=== PATIENT | female | born 1945 | race Caucasian/White ===

== ENCOUNTER 2019-01-16 20:58 | Emergency (ER) | payer OTHER, MEDICAID ==
[~2019-01-16] VITALS: Ht 160 cm; Wt 90.9 kg
[~2019-01-16 20:58] MED LIST: CALC-143 PO; ESOM40CA51 PO; GABA300C16 PO; GEMF600T8 PO; GLUC-105 PO; METF500T24 PO; MULTI PO; SERT25TA83 PO; VITA1CAP PO
[2019-01-16 21:13] VITALS: Ht 160 cm; Wt 90.9 kg
[2019-01-16] MEDS ORDERED: SOD CHLORIDE 0.9% 500 ML IV STA (22:32)
[2019-01-16] MEDS ORDERED: morphine 4 MG/ML VIAL IV STA (22:32)
[2019-01-16] MEDS ORDERED: ONDANSETRON 4 MG INJ IV STA (22:32)
[2019-01-17] MEDS ORDERED: SOD CHLORIDE 0.9% 1,000 ML IV SCH (01:08)
[2019-01-17] MEDS ORDERED: morphine 2 MG INJ IV PRN (01:30)
[2019-01-17] MEDS ORDERED: DOCUSATE SODIUM 100 MG CAP PO PRN (01:30)
[2019-01-17] MEDS ORDERED: NACL 0.9% 3 ML SYG IV SCH (01:30)
[2019-01-17] MEDS ORDERED: ONDANSETRON 4 MG INJ IV PRN (01:30)
[2019-01-17] MEDS ORDERED: ACETAMINOPHEN 325 MG TAB PO PRN (01:30)
[2019-01-17] MEDS ORDERED: METOCLOPRAMIDE 10 MG INJ IV PRN (01:30)
[2019-01-17] MEDS ORDERED: BISACODYL (EC) 5 MG TAB PO PRN (01:30)
[2019-01-17 01:41] VITALS: BP 134/68; PULSE 76; RESP 20
--- NOTE | 2019-01-17 01:54 | ERD ---
ER Documentation Chief Complaint Chief Complaint abd pain and vomiting since noon today. hx bowel obstruction HPI This is a 73-year-old female with vomiting and vomiting since noon today. Patient has history of bowel obstruction previously as well. Pain is mild to moderate intensity no exacerbating alleviating factors. No fevers no chills. Nonbloody vomiting. No change in bowel habits otherwise. ROS All systems reviewed and are negative except as per history of present illness. Medications Home Meds Reported Medications Metformin Hcl* (Metformin Hcl*) 500 Mg Tablet, 500 MG PO WITH BREAKFAST, #30 TAB 06/07/18 Calcium Citrate/Vitamin D (Citracal-Vitamin D 200 MG-250) 1 Each Tablet, 1 EACH PO BID, TAB 06/06/18 Glucosa Dey 2KCL/Chondroitin Dey (GLUCOSAMINE CHONDROITIN CAPLET) 1 Each Tablet, 1 EACH PO, TAB 06/06/18 Vitamin B Complex (Vitamin B Complex) 1 Each Capsule, 1 EACH PO, CAP 06/06/18 Multivitamins* (Theragran*) 1 Tab Tab, 1 TAB PO DAILY, TAB 06/06/18 Esomeprazole Magnesium (Esomeprazole Magnesium) 40 Mg Capsule.dr, 40 MG PO DAILY, #60 11/07/15 Sertraline Hcl* (Sertraline Hcl*) 25 Mg Tablet, 25 MG PO DAILY, #90 11/07/15 Gemfibrozil* (Gemfibrozil*) 600 Mg Tablet, 600 MG PO BID, #180 11/07/15 Gabapentin* (Gabapentin*) 300 Mg Capsule, 300 MG PO BID, #180 TAKE 600MG BY MOUTH IN THE MORNING, 900mg IN THE EVENING 11/07/15 Allergies Allergies: Coded Allergies: atorvastatin (Verified Allergy, Unknown, GENERALISED EDEMATOUS, 01/16/19) PMhx/Soc History of Surgery: Yes (HYSTERECTOMY, BACK SX, GALL STONE REMOVAL,) Anesthesia Reaction: No Hx Neurological Disorder: No Hx Respiratory Disorders: No Hx Cardiac Disorders: No Hx Psychiatric Problems: Yes (STRESS,DEPRESSION) Hx Miscellaneous Medical Probl: Yes (OVARIAN CA) Hx Alcohol Use: No Hx Substance Use: No Hx Tobacco Use: No Smoking Status: Never smoker Physical Exam Vitals Vital Signs Date Temp Pulse Resp B/P (MAP) Pulse Ox O2 O2 Flow FiO2 Time Delivery Rate 01/17/19 99.3 76 20 134/68 97 Room Air 01:41 (90) 01/16/19 99.3 99 20 162/81 97 Room Air 22:10 (108) 01/16/19 99.3 79 20 178/82 96 21:13 (114) Physical Exam Const: No acute distress Head: Atraumatic Eyes: Normal Conjunctiva ENT: Normal External Ears, Nose and Mouth. Neck: Full range of motion. No meningismus. Resp: Clear to auscultation bilaterally Cardio: Regular rate and rhythm, no murmurs Abd: Soft, non tender, non distended. Normal bowel sounds Skin: No petechiae or rashes Back: No midline or flank tenderness Ext: No cyanosis, or edema Neur: Awake and alert Psych: Normal Mood and Affect Result Diagram: 01/16/19224201/16/192242 Results 24 hrs Laboratory Tests Test 01/16/19 22:43 White Blood Count 11.3 10^3/ul Red Blood Count 4.34 10^6/ul Hemoglobin 12.8 g/dl Hematocrit 38.0 % Mean Corpuscular Volume 87.6 fl Mean Corpuscular Hemoglobin 29.5 pg Mean Corpuscular Hemoglobin Concent 33.7 g/dl Red Cell Distribution Width 12.5 % Platelet Count 317 10^3/UL Mean Platelet Volume 9.8 fl Immature Granulocytes % 0.600 % Neutrophils % 85.8 % Lymphocytes % 9.8 % Monocytes % 3.1 % Eosinophils % 0.3 % Basophils % 0.4 % Nucleated Red Blood Cells % 0.0 /100WBC Immature Granulocytes # 0.070 10^3/ul Neutrophils # 9.7 10^3/ul Lymphocytes # 1.1 10^3/ul Monocytes # 0.4 10^3/ul Eosinophils # 0.0 10^3/ul Basophils # 0.0 10^3/ul Nucleated Red Blood Cells # 0.0 10^3/ul Sodium Level 142 mmol/L Potassium Level 4.4 mmol/L Chloride Level 104 mmol/L Carbon Dioxide Level 25 mmol/L Anion Gap 13 Blood Urea Nitrogen 15 mg/dl Creatinine 0.79 mg/dl Est Glomerular Filtrat Rate mL/min mL/min Glucose Level 177 mg/dl Calcium Level 9.5 mg/dl Total Bilirubin 0.3 mg/dl Direct Bilirubin 0.00 mg/dl Indirect Bilirubin 0.3 mg/dl Aspartate Amino Transf (AST/SGOT) 55 IU/L Alanine Aminotransferase (ALT/SGPT) 51 IU/L Alkaline Phosphatase 145 IU/L Total Protein 8.0 g/dl Albumin 4.4 g/dl Globulin 3.60 g/dl Albumin/Globulin Ratio 1.22 Lipase 123 U/L Current Medications Medications Dose Sig/Adam Start Time Status Last (Trade) Ordered Route PRN Stop Time Admin Dose Reason Admin Sodium 500 ml @ Q1H STAT 01/16/19 DC 01/16/19 Chloride 500 mls/hr IV 22:32 22:55 01/16/19 23:31 Morphine 4 mg ONCE STAT 01/16/19 DC 01/16/19 Sulfate IV 22:32 22:55 (morphine) 01/16/19 22:33 Ondansetron 4 mg ONCE STAT 01/16/19 DC 01/16/19 HCl (Zofran IV 22:32 22:55 Inj) 01/16/19 22:33 Sodium 1,000 ml @ [id number] IV 01/17/19 Chloride 80 mls/hr 01:08 IV Flush 3 ml PER 01/17/19 (NS 3 ml) PROTOCOL IV 01:30 Ondansetron 4 mg Q6H PRN 01/17/19 HCl (Zofran IV 01:30 Inj) NAUSEA/VOMITI NG 10 mg Q6H PRN 01/17/19 Metoclopramid IV 01:30 e HCl NAUSEA/VOMITI (Reglan) NG 650 mg Q6H PRN 01/17/19 Acetaminophen PO .PAIN 1-3 01:30 (Tylenol OR TEMP Tab) Morphine 2 mg Q4H PRN 01/17/19 Sulfate IV .SEVERE 01:30 (morphine) PAIN 7-10 Docusate 100 mg Q12H PRN 01/17/19 Sodium PO 01:30 (Colace) .CONSTIPATION Bisacodyl 5 mg DAILY PRN 01/17/19 (Dulcolax) PO 01:30 .CONSTIPATION Procedures/MDM Medical decision makin-year-old female with small bowel obstruction. Patient will be admitted to the hospitalist Dr. Berrios. Dr. Workman will consu lt for surgery. Departure Diagnosis: Primary Impression: Abdominal pain Abdominal location: generalized Qualified Codes: R10.84 - Generalized abdominal pain Additional Impression: Small bowel obstruction Condition: Serious MINNIE SOW Jan 17, 2019 01:54
[2019-01-17] MEDS ORDERED: MELO15TA30 PO (21:33)
[2019-01-17] MEDS ORDERED: ACET-141 PO (21:33)
== END 2019-01-17 03:00 | disposition left against medical advice (07) ==
LOC: E/R 20:58 → UNDOADMIN 01-17 01:04 → PP2 01-17 01:04 → E/R 01-17 03:00
DX: K56.609 Unspecified intestinal obstruction, unspecified as to partial versus complete obstruction (principal)
CPT/HCPCS: 36415; 71045; 74176; 80053; 83690; 85025; 96374; 96375; 99285; J2270; J2405; J7030; J7040

== ENCOUNTER 2019-01-17 17:32 | Inpatient (IN) | payer OTHER, MEDICAID ==
[~2019-01-17] VITALS: Ht 154.9 cm; Wt 89.4 kg
[2019-01-17] MEDS ORDERED: ACETAMINOPHEN 325 MG TAB PO PRN (20:30)
[2019-01-17] MEDS ORDERED: ONDANSETRON 4 MG INJ IV PRN ×2 (20:30→21:00)
[2019-01-17] MEDS ORDERED: LIDOCAINE 2% VISC 15 ML CUP PO ONE (20:30)
--- NOTE | 2019-01-17 20:53 | ERD ---
ER Documentation Chief Complaint Chief Complaint SEEN HERE YESTERDAY WAS TO BE ADMITTED, LEFT AMA - RETURN TODAY FOR ADMIT HPI 73-year-old female with prior history of cervical CA status post surgery and possible bowel obstruction who presents to the emergency room complaining of abdominal pain. She was seen here yesterday and had a CAT scan showing evidence of small bowel obstruction. Patient left AGAINST MEDICAL ADVICE. She still has abdominal bloating and pain but somewhat improved. She is having nausea but no vomiting. However, at this point the patient has not passed gas or stool in the past 24 hours. Pain is only mild at this time 2 out of 10 and cramping. ROS All systems reviewed and are negative except as per history of present illness. Medications Home Meds Reported Medications Metformin Hcl* (Metformin Hcl*) 500 Mg Tablet, 500 MG PO WITH BREAKFAST, #30 TAB 06/07/18 Calcium Citrate/Vitamin D (Citracal-Vitamin D 200 MG-250) 1 Each Tablet, 1 EACH PO BID, TAB 06/06/18 Glucosa Dey 2KCL/Chondroitin Dey (GLUCOSAMINE CHONDROITIN CAPLET) 1 Each Tablet, 1 EACH PO, TAB 06/06/18 Vitamin B Complex (Vitamin B Complex) 1 Each Capsule, 1 EACH PO, CAP 06/06/18 Multivitamins* (Theragran*) 1 Tab Tab, 1 TAB PO DAILY, TAB 06/06/18 Esomeprazole Magnesium (Esomeprazole Magnesium) 40 Mg Capsule.dr, 40 MG PO DAILY, #60 11/07/15 Sertraline Hcl* (Sertraline Hcl*) 25 Mg Tablet, 25 MG PO DAILY, #90 11/07/15 Gemfibrozil* (Gemfibrozil*) 600 Mg Tablet, 600 MG PO BID, #180 11/07/15 Gabapentin* (Gabapentin*) 300 Mg Capsule, 300 MG PO BID, #180 TAKE 600MG BY MOUTH IN THE MORNING, 900mg IN THE EVENING 11/07/15 Allergies Allergies: Coded Allergies: atorvastatin (Verified Allergy, Unknown, GENERALISED EDEMATOUS, 01/16/19) PMhx/Soc History of Surgery: Yes (HYSTERECTOMY, BACK SX, GALL STONE REMOVAL,) Anesthesia Reaction: No Hx Neurological Disorder: No Hx Respiratory Disorders: No Hx Cardiac Disorders: No Hx Psychiatric Problems: Yes (STRESS,DEPRESSION) Hx Miscellaneous Medical Probl: Yes (OVARIAN CA) Hx Alcohol Use: No Hx Substance Use: No Hx Tobacco Use: No Smoking Status: Never smoker FmHx Family History: No diabetes Physical Exam Vitals Vital Signs Date Temp Pulse Resp B/P (MAP) Pulse Ox O2 O2 Flow FiO2 Time Delivery Rate 01/17/19 64 18 97 Room Air 19:37 01/17/19 100.1 75 17 134/63 94 17:34 (86) Physical Exam General: Well developed, well nourished, no acute distress Head: Normocephalic, atraumatic. Eyes: Pupils equally reactive, EOM intact ENT: Moist mucous membranes Neck: Supple, no lymphadenopathy Respiratory: Lungs clear bilaterally, no distress Cardiovascular: RRR, no murmurs, rubs, or gallops Abdominal: Soft, protuberant, nontender : Deferred MSK: No edema, no unilateral swelling, 5/5 strength Neurologic: Alert and oriented, moving all extremities, normal speech, no focal weakness, no cerebellar signs Skin: No rash Psych: Normal mood Result Diagram: 01/17/19 1849 01/17/19 1849 Results 24 hrs Laboratory Tests Test 01/17/19 18:49 White Blood Count 10.5 10^3/ul Red Blood Count 3.93 10^6/ul Hemoglobin 11.6 g/dl Hematocrit 35.0 % Mean Corpuscular Volume 89.1 fl Mean Corpuscular Hemoglobin 29.5 pg Mean Corpuscular Hemoglobin Concent 33.1 g/dl Red Cell Distribution Width 13.2 % Platelet Count 308 10^3/UL Mean Platelet Volume 9.5 fl Immature Granulocytes % 0.600 % Neutrophils % 71.1 % Lymphocytes % 20.4 % Monocytes % 7.4 % Eosinophils % 0.2 % Basophils % 0.3 % Nucleated Red Blood Cells % 0.0 /100WBC Immature Granulocytes # 0.060 10^3/ul Neutrophils # 7.5 10^3/ul Lymphocytes # 2.1 10^3/ul Monocytes # 0.8 10^3/ul Eosinophils # 0.0 10^3/ul Basophils # 0.0 10^3/ul Nucleated Red Blood Cells # 0.0 10^3/ul Sodium Level 142 mmol/L Potassium Level 4.4 mmol/L Chloride Level 104 mmol/L Carbon Dioxide Level 27 mmol/L Anion Gap 11 Blood Urea Nitrogen 16 mg/dl Creatinine 0.84 mg/dl Est Glomerular Filtrat Rate mL/min mL/min Glucose Level 123 mg/dl Calcium Level 9.1 mg/dl Current Medications Medications Dose Sig/Adam Start Time Status Last (Trade) Ordered Route PRN Stop Time Admin Dose Reason Admin Ondansetron 4 mg BRIDGE ORDER 01/17/19 HCl (Zofran PRN IV 20:30 Inj) NAUSEA/VOMITI 01/18/19 20:29 NG 650 mg ER BRIDGE 01/17/19 Acetaminophen PRN PO 20:30 (Tylenol .MILD PAIN 01/18/19 20:29 Tab) 1-3 OR TEMP Lidocaine 15 ml ONCE ONCE 01/17/19 DC (Xylocaine PO 20:30 (Viscous)) 01/17/19 20:31 Sodium 1,000 ml @ [id number] IV 01/17/19 UNV Chloride 80 mls/hr 20:44 IV Flush 3 ml PER 01/17/19 UNV (NS 3 ml) PROTOCOL IV 21:00 Ondansetron 4 mg Q4 PRN IV 01/17/19 UNV HCl (Zofran NAUSEA/VOMITI 21:00 Inj) NG Morphine 2 mg Q4H PRN 01/17/19 UNV Sulfate IV .SEVERE 21:00 (morphine) PAIN 7-10 Docusate 100 mg Q12H PRN 01/17/19 UNV Sodium PO 21:00 (Colace) .CONSTIPATION Bisacodyl 5 mg DAILY PRN 01/17/19 UNV (Dulcolax) PO 21:00 .CONSTIPATION 40 mg DAILY@06 01/18/19 UNV Pantoprazole IV 06:00 (Protonix Iv) Procedures/MDM EKG, MONITORS, & DIAGNOSTIC IMAGING: CT a/p IMPRESSION: Persistent moderately distended small bowel loops pelvis without transition. Question small bowel obstruction versus ileus. No mass seen. Consider small-bow el follow-through for more definitive diagnosis. Cholecystectomy. Enlarged fatty liver. Vascular calcifications. Hysterectomy. LAB INTERPRETATION: I reviewed the laboratory testing and it shows [no evidence of acute process] MEDICAL DECISION MAKING: Patient presents for reevaluation of possible bowel obstruction. Her symptoms are dramatically improved with the patient has still not passed any stool or gas raising the concern for persistent obstruction. CT imaging can be repeated give n improved symptoms and if improved she can be discharged ER COURSE: * Repeat CAT scan unfortunately unchanged. The patient will benefit from admission for further evaluation and surgical consultation * NG tube placed * General surgeon button puncher notified CONSULTATION: Dr. Eduardo DISPOSITION PLAN: Accepting care team and consultations: I discussed the current laboratory data, diagnostic imaging and emergency care provided. Admitting team: Dr. Berrios Admitting team indication: Insurance directed Departure Diagnosis: Primary Impression: Abdominal pain Abdominal location: generalized Qualified Codes: R10.84 - Generalized abdominal pain Additional Impression: Small bowel obstruction Condition: Stable BRAYDEN WHITE MD Jan 17, 2019 20:53
[2019-01-17] MEDS ORDERED: morphine 2 MG INJ IV PRN (21:00)
[2019-01-17] MEDS ORDERED: NACL 0.9% 3 ML SYG IV SCH (21:00)
[2019-01-17] MEDS ORDERED: BISACODYL (EC) 5 MG TAB PO PRN (21:00)
[2019-01-17] MEDS ORDERED: DOCUSATE SODIUM 100 MG CAP PO PRN (21:00)
[2019-01-17 21:25] VITALS: Ht 154.9 cm; Wt 89.4 kg
--- NOTE | 2019-01-17 21:29 | HP ---
Date/Time of Note Date/Time of Note DATE: 01/17/19 TIME: 21:29 Assessment/Plan VTE Prophylaxis SCD applied (from Nsg): Yes Pharmacological prophylaxis: NA/contraindicated Pharm contraindication: low risk/ambulating Lines/Catheters IV Catheter Type (from Nrsg): Saline Lock Assessment/Plan Hospital Course This is a 72 year female being admitted to the [facility] floor for: 1. Small bowel obstruction:. Insert NG tube. Continue to suction. Continue with analgesics as needed. We'll provide with IV hydration. Consult Dr. smart Monitor electrolytes. 2. History of chronic major depression. SSRI medication once able to tolerate oral intake. 3. History of GERD: Protonix IV 4. History dyslipidemia. Lipid panel, gemfibrozil once able tolerate p.o. 5. DVT prophylaxis: SCDs, Protonix Further treatment strategy will be implemented for the clinical course Result Diagram: 01/17/19 1849 01/17/19 1849 Results 24hrs Laboratory Tests Test 01/17/19 18:49 White Blood Count 10.5 Red Blood Count 3.93 L Hemoglobin 11.6 L Hematocrit 35.0 L Mean Corpuscular Volume 89.1 Mean Corpuscular Hemoglobin 29.5 Mean Corpuscular Hemoglobin Concent 33.1 Red Cell Distribution Width 13.2 Platelet Count 308 Mean Platelet Volume 9.5 Immature Granulocytes % 0.600 H Neutrophils % 71.1 Lymphocytes % 20.4 Monocytes % 7.4 Eosinophils % 0.2 Basophils % 0.3 Nucleated Red Blood Cells % 0.0 Immature Granulocytes # 0.060 H Neutrophils # 7.5 Lymphocytes # 2.1 Monocytes # 0.8 Eosinophils # 0.0 Basophils # 0.0 Nucleated Red Blood Cells # 0.0 Sodium Level 142 Potassium Level 4.4 Chloride Level 104 Carbon Dioxide Level 27 Anion Gap 11 Blood Urea Nitrogen 16 Creatinine 0.84 Est Glomerular Filtrat Rate mL/min Glucose Level 123 # Calcium Level 9.1 HPI/ROS Admit Date/Time Admit Date/Time Hx of Present Illness Chief complaint: Abdominal pain times 2 days, vomiting This is a 73-year-old female with a past medical history of recurrent small bowel obstructions who presented to the emergency department with complaints of abdominal pain and vomiting. Patient presented earlier in the day as well and was found to have a small bowel obstruction however the patient left AMA as she needed to take care of her son. Patient reports that she continues to have abdominal pain and vomiting. While she had not had a bowel movement over the last 2 days she does report that she recently did have a bowel movement. Allergies: Atorvastatin Medications: MAR ROS const: As per HPI Eyes : No pain discharge or redness or change in visual acuity ENT: No pain, sore throat, congestion, congestion, dysphagia or discharge Respiratory: No shortness of breath, cough, sputum, wheezing, or pleuritic pain Cardiovascular: No chest pain, palpitation, PND, or edema GI : As per HPI Genitourinary: No dysuria, hematuria, flank pain , discharge or CVA tenderness Musculoskeletal: No joint pain, back pain, neck pain, restricted range of motion in neck or joints Skin: No rash, bruising or hives Neuro: No headache, dizziness, syncope, seizure, focal weakness Endocrine: No polyuria, polydipsia, temperature intolerance Psych: No hallucination, depression, anxiety or suicidal ideation PMH/Family/Social Past Medical History cervical cancer status post hysterectomy and radiation, history of recurrent small bowel obstruction, chronic GERD, major depression, peptic ulcer disease Medications Current Medications Ondansetron HCl (Zofran Inj) 4 mg BRIDGE ORDER PRN IV NAUSEA/VOMITING; Start 01/17/19 at 20:30; Stop 01/18/19 at 20:29 Acetaminophen (Tylenol Tab) 650 mg ER BRIDGE PRN PO .MILD PAIN 1-3 OR TEMP; Start 01/17/19 at 20:30; Stop 01/18/19 at 20:29 Sodium Chloride 1,000 ml @ 80 mls/hr [id number] IV ; Start 01/17/19 at 20:44 IV Flush (NS 3 ml) 3 ml PER PROTOCOL IV ; Start 01/17/19 at 21:00 Ondansetron HCl (Zofran Inj) 4 mg Q4 PRN IV NAUSEA/VOMITING; Start 01/17/19 at 21:00 Morphine Sulfate (morphine) 2 mg Q4H PRN IV .SEVERE PAIN 7-10; Start 01/17/19 at 21:00 Docusate Sodium (Colace) 100 mg Q12H PRN PO .CONSTIPATION; Start 01/17/19 at 21:00 Bisacodyl (Dulcolax) 5 mg DAILY PRN PO .CONSTIPATION; Start 01/17/19 at 21:00 Pantoprazole (Protonix Iv) 40 mg DAILY@06 IV ; Start 01/18/19 at 06:00 Iohexol ((Gastrografin therapeutic equivalent)) 900 ml GIVE PRIOR TO CT ONCE PO ; Start 01/18/19 at 08:00; Stop 01/18/19 at 08:01 Coded Allergies: atorvastatin (Verified Allergy, Unknown, GENERALISED EDEMATOUS, 01/16/19) Past Surgical History Cervical cancer status post hysterectomy Family History Significant Family History: no pertinent family hx Social History Alcohol Use: none Smoking Status: Never smoker Drug Use: none Exam/Review of Systems Vital Signs Vitals Vital Signs Date Temp Pulse Resp B/P (MAP) Pulse Ox O2 O2 Flow FiO2 Time Delivery Rate 01/17/19 76 18 143/55 100 Room Air 21:12 (84) 01/17/19 100.1 17:34 Exam Exam General: Patient is currently lying in bed he does not appear to be in acute distress, HEENT: Atraumatic, normocephalic. The pupils are equal, round and reactive. Extraocular motor are intact . NG tube connected to suction Neck: Supple with full range of motion. No rigidity or meningismus Chest: Nontender Lungs: Clear to auscultation bilaterally no crackles rales or wheezing Heart: Normal S1-S2, Regular rhythm and rate. No murmur, S3, or S4 Abdomen: Soft mild generalized tenderness palpation of the abdomen,, bowel sounds are present. No guarding no rebound tenderness , No masses or organomegaly. No costovertebral temporal angle mass Extremities: Normal to inspection, no edema no cyanosis Neurologic: Normal mental status, speech normal, cranial nerves II through XII are intact, motor and sensory are intact, Additional Comments PROCEDURE: CT abdomen and pelvis without contrast. CLINICAL INDICATION: Abdominal Pain TECHNIQUE: CT scan of the abdomen and pelvis without oral contrast was performed and is reconstructed at 2.5 mm contiguous axial intervals from the dome of the diaphragm to the inferior pubic rami.. The patient was scanned without intravenous contrast. Sagittal and coronal reformatted images were obtained from the axial source images. The calculated radiation dose measures 1122 mGy centimeters. The CTDI measures 20 mGy. Individualized dose optimization technique was used for the performance of this exam. This included 1. Automated exposure control. 2. Adjustment of the mA and / or kV according to the patient's size. 3. Use of iterative reconstructed technique. DICOM images are available. COMPARISON: CT abdomen pelvis January 16, 2019 FINDINGS: The lung bases are clear of any infiltrate or nodule. No effusion is seen. Liver is enlarged measuring 19.7 cm. There is fatty infiltration. No mass or ductal dilatation is present. Gallbladder has been removed. No splenic, adrenal or pancreatic abnormalities present. Kidneys are of normal size and contour. No hydronephrosis, calculus or mass Is seen. Ureters are of normal course and caliber with no stone. No bladder mass or stone is present. Uterus is been removed. No adnexal mass is seen. There are surgical clips in the pelvis. There is no aneurysm. There are vascular calcifications per No adenopathy is present. No bowel mass is present. Again noted are moderately dilated small bowel loops in the lower abdomen with air-fluid levels. Transition is not confidently visualized and no mass is detected. Appearance is not changed significantly in the interim.. The appendix is normal. No phlegmon, ascites or pneumoperitoneum is visualized. Senescent degenerative changes are present in the spine. IMPRESSION: Persistent moderately distended small bowel loops pelvis without transition. Question small bowel obstruction versus ileus. No mass seen. Consider small- bowel follow-through for more definitive diagnosis. Cholecystectomy. Enlarged fatty liver. Vascular calcifications. Hysterectomy. .Khalif Velez MD, Date Time Electronically viewed and signed by .Khalif Velez MD, on 01/17/2019 19:52 .A/ CC: BRAYDEN WHITE MD [id number] LANDON SANDERS Jan 17, 2019 21:29
[2019-01-17] MEDS ORDERED: MELO15TA30 PO (21:33)
[2019-01-17] MEDS ORDERED: ACET-141 PO (21:33)
[2019-01-17 21:42] VITALS: BP 145/67; PULSE 70; RESP 17
[2019-01-17] MEDS: SOD CHLORIDE 0.9% 1,000 ML IV SCH (22:23)
[2019-01-18 02:00] VITALS: BP 138/69; PULSE 74; RESP 17
[2019-01-18] MEDS: PANTOPRAZOLE 40 MG INJ IV SCH (05:42)
[2019-01-18] MEDS ORDERED: IOHEXOL 14.3 MG(I)/ML (ADULT) BTL PO ONE (08:00)
[2019-01-18 08:02] VITALS: BP 142/66; PULSE 69; RESP 18
[2019-01-18] MEDS: SOD CHLORIDE 0.9% 1,000 ML IV SCH ×2 (09:14→12:32)
--- NOTE | 2019-01-18 10:23 | PN ---
Date/Time of Note Date/Time of Note DATE: 01/18/19 TIME: 10:05 Assessment/Plan VTE Prophylaxis SCD applied (from Nsg): Yes SCD contraindicated: low risk/ambulating Pharmacological prophylaxis: NA/contraindicated Pharm contraindication: low risk/ambulating Lines/Catheters IV Catheter Type (from Nrsg): Peripheral IV Urinary Cath still in place: No Assessment/Plan Hospital Course 73-year-old female with a past medical history of recurrent small bowel obstructions who presented to the emergency department with complaints of abdominal pain and vomiting. 1. Recurrent Small bowel obstruction: -patient has had multiple abdominal surgeries -Continue NGT -patient needs SBFT but just completed contrast for CT with IV/PO contrast, instead of doing another study, spoke with radiology, we will delay images post contrast to ensure contrast has had time to transition through small bowel -await surgical review and recommendations -continue pain control and supportive care 2. History of chronic major depression. SSRI medication once able to tolerate oral intake. 3. History of GERD: Protonix IV 4. History dyslipidemia. Lipid panel, gemfibrozil once able tolerate p.o. 5. DVT prophylaxis: SCDs, Protonix Further treatment strategy will be implemented for the clinical course Result Diagram: 01/18/19 0734 01/18/19 0734 Results 24hrs Laboratory Tests Test 01/17/19 18:49 01/18/19 07:34 White Blood Count 10.5 7.9 # Red Blood Count 3.93 L 3.83 L Hemoglobin 11.6 L 11.6 L Hematocrit 35.0 L 34.9 L Mean Corpuscular Volume 89.1 91.1 Mean Corpuscular Hemoglobin 29.5 30.3 Mean Corpuscular Hemoglobin Concent 33.1 33.2 Red Cell Distribution Width 13.2 13.1 Platelet Count 308 289 Mean Platelet Volume 9.5 10.3 Immature Granulocytes % 0.600 H 0.400 Neutrophils % 71.1 66.2 Lymphocytes % 20.4 23.0 Monocytes % 7.4 8.7 Eosinophils % 0.2 1.3 Basophils % 0.3 0.4 Nucleated Red Blood Cells % 0.0 0.0 Immature Granulocytes # 0.060 H 0.030 Neutrophils # 7.5 5.3 Lymphocytes # 2.1 1.8 Monocytes # 0.8 0.7 Eosinophils # 0.0 0.1 Basophils # 0.0 0.0 Nucleated Red Blood Cells # 0.0 0.0 Sodium Level 142 143 Potassium Level 4.4 4.0 Chloride Level 104 105 Carbon Dioxide Level 27 27 Anion Gap 11 11 Blood Urea Nitrogen 16 16 Creatinine 0.84 0.82 Est Glomerular Filtrat Rate mL/min Glucose Level 123 # 121 Calcium Level 9.1 8.8 Hemoglobin A1c 6.2 H Magnesium Level 2.2 Total Bilirubin 0.5 Direct Bilirubin 0.00 Indirect Bilirubin 0.5 Aspartate Amino Transf (AST/SGOT) 60 H Alanine Aminotransferase (ALT/SGPT) 53 Alkaline Phosphatase 96 Total Protein 7.0 # Albumin 3.9 Globulin 3.10 Albumin/Globulin Ratio 1.25 Thyroid Stimulating Hormone (TSH) 0.676 Subjective 24 Hr Interval Summary Free Text/Dictation patient feels better abd pain is improved, had a BM this am, just completed the contrast for pending CT Exam/Review of Systems Exam Vitals Vital Signs Date Temp Pulse Resp B/P (MAP) Pulse Ox O2 O2 Flow FiO2 Time Delivery Rate 01/18/19 97.8 69 18 142/66 96 Room Air 08:02 (91) Intake and Output 01/17/19 01/17/19 01/18/19 1515:00 23:00 07:00 OutputOutput Total 100 ml 0 ml BalanceBalance -100 ml 0 ml Exam General: A&O x3, answering questions appropriately, obese, no distress HEENT: NC/ AT. PERRL. EOM intact, NGT in place Neck: supple CVS: S1, S2, RRR. no murmurs. no pain on chest wall palpation Lungs: CTA b/l. no wheezing or rhonchi Abd: soft, still minimally tender, +BS Ext: moving all extremities skin: no rashes Results Results 24hrs Laboratory Tests Test 01/17/19 18:49 01/18/19 07:34 White Blood Count 10.5 7.9 # Red Blood Count 3.93 L 3.83 L Hemoglobin 11.6 L 11.6 L Hematocrit 35.0 L 34.9 L Mean Corpuscular Volume 89.1 91.1 Mean Corpuscular Hemoglobin 29.5 30.3 Mean Corpuscular Hemoglobin Concent 33.1 33.2 Red Cell Distribution Width 13.2 13.1 Platelet Count 308 289 Mean Platelet Volume 9.5 10.3 Immature Granulocytes % 0.600 H 0.400 Neutrophils % 71.1 66.2 Lymphocytes % 20.4 23.0 Monocytes % 7.4 8.7 Eosinophils % 0.2 1.3 Basophils % 0.3 0.4 Nucleated Red Blood Cells % 0.0 0.0 Immature Granulocytes # 0.060 H 0.030 Neutrophils # 7.5 5.3 Lymphocytes # 2.1 1.8 Monocytes # 0.8 0.7 Eosinophils # 0.0 0.1 Basophils # 0.0 0.0 Nucleated Red Blood Cells # 0.0 0.0 Sodium Level 142 143 Potassium Level 4.4 4.0 Chloride Level 104 105 Carbon Dioxide Level 27 27 Anion Gap 11 11 Blood Urea Nitrogen 16 16 Creatinine 0.84 0.82 Est Glomerular Filtrat Rate mL/min Glucose Level 123 # 121 Calcium Level 9.1 8.8 Hemoglobin A1c 6.2 H Magnesium Level 2.2 Total Bilirubin 0.5 Direct Bilirubin 0.00 Indirect Bilirubin 0.5 Aspartate Amino Transf (AST/SGOT) 60 H Alanine Aminotransferase (ALT/SGPT) 53 Alkaline Phosphatase 96 Total Protein 7.0 # Albumin 3.9 Globulin 3.10 Albumin/Globulin Ratio 1.25 Thyroid Stimulating Hormone (TSH) 0.676 Medications Medication Current Medications Sodium Chloride 1,000 ml @ 80 mls/hr [id number] IV Last administered on 01/17/19at 22:23; Admin Dose 80 MLS/HR; Start 01/17/19 at 20:44 IV Flush (NS 3 ml) 3 ml PER PROTOCOL IV ; Start 01/17/19 at 21:00 Ondansetron HCl (Zofran Inj) 4 mg Q4 PRN IV NAUSEA/VOMITING; Start 01/17/19 at 21:00 Morphine Sulfate (morphine) 2 mg Q4H PRN IV .SEVERE PAIN 7-10; Start 01/17/19 at 21:00 Docusate Sodium (Colace) 100 mg Q12H PRN PO .CONSTIPATION; Start 01/17/19 at 21:00 Bisacodyl (Dulcolax) 5 mg DAILY PRN PO .CONSTIPATION; Start 01/17/19 at 21:00 Pantoprazole (Protonix Iv) 40 mg DAILY@06 IV Last administered on 01/18/19at 05:42; Admin Dose 40 MG; Start 01/18/19 at 06:00 Sertraline HCl (Zoloft) 25 mg QHS PO ; Start 01/18/19 at 21:00 GLORY SAUNDERS Jan 18, 2019 10:16
--- NOTE | 2019-01-18 12:51 | CONS ---
Assessment/Plan Assessment/Plan Assessment/Plan (Daily) Resolving SBO Await results of CT but clinically, patient is likely resolving. She has had multiple episodes of diarrhea today. If CT shows contrast in the colon, will DC NG tube and start clears Consultation Date/Type/Reason Admit Date/Time Date/Time of Note DATE: 01/18/19 TIME: 12:47 Hx of Present Illness The patient is a 73-year-old female status post surgery for cervical CA as well as radiation. Patient also had a small bowel resection for radiation enteritis. She presented to the ER 2 days ago with evidence of small bowel obstruction. At that time, she left AM Patient does have episodes of pain at home. When she does have abdominal pain, this usually resolves with massage and bowel rest. However, she developed a combination of nausea and pain. After she went home yesterday, shooting continued abdominal bloating and nausea. She denies having bowel movement or flatus. However, today she had multiple episodes of diarrhea. 14 point review of systems was performed. Pertinent negatives and positives per HPI. Past Medical History Medical History: GERD, high cholesterol, hypertension Home Meds Reported Medications Acetaminophen* (Acetaminophen*) 500 MG Extra Strength Tablet, 500 MG PO Q4H PRN for PAIN AND OR ELEVATED TEMP, TAB 01/17/19 Meloxicam* (Mobic*) 15 Mg Tablet, 15 MG PO DAILY for 90 Days, #90 01/17/19 Metformin Hcl* (Metformin Hcl*) 500 Mg Tablet, 500 MG PO WITH BREAKFAST, #30 TAB 06/07/18 Calcium Citrate/Vitamin D (Citracal-Vitamin D 200 MG-250) 1 Each Tablet, 1 EACH PO BID, TAB 06/06/18 Glucosa Dey 2KCL/Chondroitin Dey (GLUCOSAMINE CHONDROITIN CAPLET) 1 Each Tablet, 1 EACH PO, TAB 06/06/18 Vitamin B Complex (Vitamin B Complex) 1 Each Capsule, 1 EACH PO, CAP 06/06/18 Multivitamins* (Theragran*) 1 Tab Tab, 1 TAB PO DAILY, TAB 06/06/18 Esomeprazole Magnesium (Esomeprazole Magnesium) 40 Mg Capsule.dr, 40 MG PO DAILY, #60 11/07/15 Sertraline Hcl* (Sertraline Hcl*) 25 Mg Tablet, 25 MG PO QHS, #90 11/07/15 Gemfibrozil* (Gemfibrozil*) 600 Mg Tablet, 600 MG PO BID, #180 11/07/15 Gabapentin* (Gabapentin*) 300 Mg Capsule, 300 MG PO BID, #180 TAKE 600MG BY MOUTH IN THE MORNING, 900mg IN THE EVENING 11/07/15 Medications Current Medications Sodium Chloride 1,000 ml @ 80 mls/hr [id number] IV Last administered on 01/18/19at 12:32; Admin Dose 80 MLS/HR; Start 01/17/19 at 20:44 IV Flush (NS 3 ml) 3 ml PER PROTOCOL IV ; Start 01/17/19 at 21:00 Ondansetron HCl (Zofran Inj) 4 mg Q4 PRN IV NAUSEA/VOMITING; Start 01/17/19 at 21:00 Morphine Sulfate (morphine) 2 mg Q4H PRN IV .SEVERE PAIN 7-10; Start 01/17/19 at 21:00 Docusate Sodium (Colace) 100 mg Q12H PRN PO .CONSTIPATION; Start 01/17/19 at 21:00 Bisacodyl (Dulcolax) 5 mg DAILY PRN PO .CONSTIPATION; Start 01/17/19 at 21:00 Pantoprazole (Protonix Iv) 40 mg DAILY@06 IV Last administered on 01/18/19at 05:42; Admin Dose 40 MG; Start 01/18/19 at 06:00 Sertraline HCl (Zoloft) 25 mg QHS PO ; Start 01/18/19 at 21:00 Allergies: Coded Allergies: atorvastatin (Verified Allergy, Unknown, GENERALISED EDEMATOUS, 01/16/19) Past Surgical History Status post JOSE and BSO for ovarian cancer. 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 Family History Significant Family History: no pertinent family hx Social History Alcohol Use: none Smoking Status: Never smoker Drug Use: none Exam/Review of Systems Exam Vitals Vital Signs Date Temp Pulse Resp B/P (MAP) Pulse Ox O2 O2 Flow FiO2 Time Delivery Rate 01/18/19 97.8 69 18 142/66 96 Room Air 08:02 (91) Intake and Output 01/17/19 01/17/19 01/18/19 1515:00 23:00 07:00 OutputOutput Total 100 ml 0 ml BalanceBalance -100 ml 0 ml Constitutional: alert, oriented, well developed, obese Psych: no complaints Head: normocephalic Eyes: nl conjunctiva ENMT: nl external ears & nose Neck: supple Respiratory: clear to auscultation Cardiovascular: regular rate and rhythm Gastrointestinal: soft, non-tender Extremities: normal pulses Neurological: PUBLIC ADDRESS [employer] II-XII intact, nl mental status Skin: nl turgor Results Result Diagram: 01/18/19 0734 01/18/19 0734 Results 24hrs Laboratory Tests Test 01/17/19 18:49 01/18/19 07:34 White Blood Count 10.5 7.9 # Red Blood Count 3.93 L 3.83 L Hemoglobin 11.6 L 11.6 L Hematocrit 35.0 L 34.9 L Mean Corpuscular Volume 89.1 91.1 Mean Corpuscular Hemoglobin 29.5 30.3 Mean Corpuscular Hemoglobin Concent 33.1 33.2 Red Cell Distribution Width 13.2 13.1 Platelet Count 308 289 Mean Platelet Volume 9.5 10.3 Immature Granulocytes % 0.600 H 0.400 Neutrophils % 71.1 66.2 Lymphocytes % 20.4 23.0 Monocytes % 7.4 8.7 Eosinophils % 0.2 1.3 Basophils % 0.3 0.4 Nucleated Red Blood Cells % 0.0 0.0 Immature Granulocytes # 0.060 H 0.030 Neutrophils # 7.5 5.3 Lymphocytes # 2.1 1.8 Monocytes # 0.8 0.7 Eosinophils # 0.0 0.1 Basophils # 0.0 0.0 Nucleated Red Blood Cells # 0.0 0.0 Sodium Level 142 143 Potassium Level 4.4 4.0 Chloride Level 104 105 Carbon Dioxide Level 27 27 Anion Gap 11 11 Blood Urea Nitrogen 16 16 Creatinine 0.84 0.82 Est Glomerular Filtrat Rate mL/min Glucose Level 123 # 121 Calcium Level 9.1 8.8 Hemoglobin A1c 6.2 H Magnesium Level 2.2 Total Bilirubin 0.5 Direct Bilirubin 0.00 Indirect Bilirubin 0.5 Aspartate Amino Transf (AST/SGOT) 60 H Alanine Aminotransferase (ALT/SGPT) 53 Alkaline Phosphatase 96 Total Protein 7.0 # Albumin 3.9 Globulin 3.10 Albumin/Globulin Ratio 1.25 Thyroid Stimulating Hormone (TSH) 0.676 Imaging Imaging Patient: DARON QUINTANILLA : 1945 Age: 73 Sex: F MR #: [id number] DOS: 01/17/19 1845 Ordering MD: BRAYDEN WHITE MD Location: E/R Room/Bed: PROCEDURE: CT abdomen and pelvis without contrast. CLINICAL INDICATION: Abdominal Pain TECHNIQUE: CT scan of the abdomen and pelvis without oral contrast was performed and is reconstructed at 2.5 mm contiguous axial intervals from the dome of the diaphragm to the inferior pubic rami.. The patient was scanned without intravenous contrast. Sagittal and coronal reformatted images were obtained from the axial source images. The calculated radiation dose measures 1122 mGy centimeters. The CTDI measures 20 mGy. Individualized dose optimization technique was used for the performance of this exam. This included 1. Automated exposure control. 2. Adjustment of the mA and / or kV according to the patient's size. 3. Use of iterative reconstructed technique. DICOM images are available. COMPARISON: CT abdomen pelvis January 16, 2019 FINDINGS: The lung bases are clear of any infiltrate or nodule. No effusion is seen. Liver is enlarged measuring 19.7 cm. There is fatty infiltration. No mass or ductal dilatation is present. Gallbladder has been removed. No splenic, adrenal or pancreatic abnormalities present. Kidneys are of normal size and contour. No hydronephrosis, calculus or mass Is seen. Ureters are of normal course and caliber with no stone. No bladder mass or stone is present. Uterus is been removed. No adnexal mass is seen. There are surgical clips in the pelvis. There is no aneurysm. There are vascular calcifications per No adenopathy is present. No bowel mass is present. Again noted are moderately dilated small bowel loops in the lower abdomen with air-fluid levels. Transition is not confidently visualized and no mass is detected. Appearance is not changed significantly in the interim.. The appendix is normal. No phlegmon, ascites or pneumoperitoneum is visualized. Senescent degenerative changes are present in the spine. IMPRESSION: Persistent moderately distended small bowel loops pelvis without transition. Qu estion small bowel obstruction versus ileus. No mass seen. Consider small-bowel follow-through for more definitive diagnosis. Cholecystectomy. Enlarged fatty liver. Vascular calcifications. Hysterectomy. .Khalif Velez MD, MD Date Time Electronically viewed and signed by .Khalif Velez MD, on 01/17/2019 19:52 .A/ Medications Medication Current Medications Sodium Chloride 1,000 ml @ 80 mls/hr [id number] IV Last administered on 01/18/19at 12:32; Admin Dose 80 MLS/HR; Start 01/17/19 at 20:44 IV Flush (NS 3 ml) 3 ml PER PROTOCOL IV ; Start 01/17/19 at 21:00 Ondansetron HCl (Zofran Inj) 4 mg Q4 PRN IV NAUSEA/VOMITING; Start 01/17/19 at 21:00 Morphine Sulfate (morphine) 2 mg Q4H PRN IV .SEVERE PAIN 7-10; Start 01/17/19 at 21:00 Docusate Sodium (Colace) 100 mg Q12H PRN PO .CONSTIPATION; Start 01/17/19 at 21:00 Bisacodyl (Dulcolax) 5 mg DAILY PRN PO .CONSTIPATION; Start 01/17/19 at 21:00 Pantoprazole (Protonix Iv) 40 mg DAILY@06 IV Last administered on 01/18/19at 05:42; Admin Dose 40 MG; Start 01/18/19 at 06:00 Sertraline HCl (Zoloft) 25 mg QHS PO ; Start 01/18/19 at 21:00 HARPAL GAMBOA MD Jan 18, 2019 12:51
[2019-01-18 14:00] VITALS: BP 154/67; PULSE 64; RESP 18
[2019-01-18] MEDS ORDERED: IOHEXOL 300MG/ML 150 ML BTL ONE (14:35)
[2019-01-18] MEDS ORDERED: SOD CHLORIDE 0.9% 100 ML ONE (14:35)
[2019-01-18 19:54] VITALS: BP 164/77; PULSE 67; RESP 18
[2019-01-18] MEDS ORDERED: SERTRALINE 50 MG TAB PO SCH (21:00)
[2019-01-19 02:05] VITALS: BP 130/69; PULSE 63; RESP 18
[2019-01-19] MEDS: SOD CHLORIDE 0.9% 1,000 ML IV SCH (02:15)
[2019-01-19] MEDS: PANTOPRAZOLE 40 MG INJ IV SCH (05:35)
[2019-01-19 08:00] VITALS: BP 177/79; PULSE 69; RESP 20
--- NOTE | 2019-01-19 11:53 | PDOCDIS ---
Discharge Instructions DIAGNOSIS Discharge Diagnosis Partial small bowel obstruction. CONDITION [id number] Patient Condition: Nehul1z Good HOME CARE INSTRUCTIONS: [id number] Diet Instructions: [id number] soft diet ACTIVITY: [id number] Activity Restrictions: [id number] Slowly Increase Activity FOLLOW UP/APPOINTMENTS Follow-up Plan 1. Continue to eat soft foods at home. 2. If you develop vomiting and cannot keep food or liquids down, return here to the emergency room. 3. Take all medication as prescribed. 4. See your primary care doctor in 1-2 weeks. JOLYNN GERMAN MD Jan 19, 2019 11:53
--- NOTE | 2019-01-19 14:29 | DS ---
Date/Time of Note Date/Time of Note DATE: 01/19/19 TIME: 14:26 Discharge Summary Admission/Discharge Info Admit Date/Time Jan 17, 2019 at 20:30 Discharge Date/Time Jan 19, 2019 at 12:55 Discharge Diagnosis Partial small bowel obstruction. Patient Condition: Fair Consults Dr. Eduardo, general surgery Procedures None Hx of Present Illness Chief complaint: Abdominal pain times 2 days, vomiting This is a 73-year-old female with a past medical history of recurrent small bowel obstructions who presented to the emergency department with complaints of abdominal pain and vomiting. Patient presented earlier in the day as well and was found to have a small bowel obstruction however the patient left AMA as she needed to take care of her son. Patient reports that she continues to have abdominal pain and vomiting. While she had not had a bowel movement over the last 2 days she does report that she recently did have a bowel movement. Allergies: Atorvastatin Medications: MAR Hospital Course The patient was started on clear liquid diet which she tolerated well. Abdominal pain resolved; she began passing gas and soft stool. The morning of 01/19 she requested discharge because her son is alone at home; apparently he has a seizure disorder and is very mentally disabled. The patient was given soft food which she tolerated well; she was up and vigorously ambulatory. Home Meds Reported Medications Acetaminophen* (Acetaminophen*) 500 MG Extra Strength Tablet, 500 MG PO Q4H PRN for PAIN AND OR ELEVATED TEMP, TAB 01/17/19 Meloxicam* (Mobic*) 15 Mg Tablet, 15 MG PO DAILY for 90 Days, #90 01/17/19 Metformin Hcl* (Metformin Hcl*) 500 Mg Tablet, 500 MG PO WITH BREAKFAST, #30 TAB 06/07/18 Calcium Citrate/Vitamin D (Citracal-Vitamin D 200 MG-250) 1 Each Tablet, 1 EACH PO BID, TAB 06/06/18 Glucosa Dey 2KCL/Chondroitin Dey (GLUCOSAMINE CHONDROITIN CAPLET) 1 Each Tablet, 1 EACH PO, TAB 06/06/18 Vitamin B Complex (Vitamin B Complex) 1 Each Capsule, 1 EACH PO, CAP 06/06/18 Multivitamins* (Theragran*) 1 Tab Tab, 1 TAB PO DAILY, TAB 06/06/18 Esomeprazole Magnesium (Esomeprazole Magnesium) 40 Mg Capsule., 40 MG PO DAILY, #60 11/07/15 Sertraline Hcl* (Sertraline Hcl*) 25 Mg Tablet, 25 MG PO QHS, #90 11/07/15 Gemfibrozil* (Gemfibrozil*) 600 Mg Tablet, 600 MG PO BID, #180 11/07/15 Gabapentin* (Gabapentin*) 300 Mg Capsule, 300 MG PO BID, #180 TAKE 600MG BY MOUTH IN THE MORNING, 900mg IN THE EVENING 11/07/15 Follow-up Plan 1. Continue to eat soft foods at home. 2. If you develop vomiting and cannot keep food or liquids down, return here to the emergency room. 3. Take all medication as prescribed. 4. See your primary care doctor in 1-2 weeks. Primary Care Provider Natalie Rutherford MD Time spent on discharge: > 30 minutes JOLYNN GERMAN MD Jan 19, 2019 14:29
== END 2019-01-19 12:55 | disposition home or self-care (01) | DRG 389 ==
LOC: E/R 17:32 → 5EC 20:30
PROVIDERS: ADMIT Family Medicine; ATTEND Internal Medicine
DX: K56.600 Partial intestinal obstruction, unspecified as to cause (principal); F33.9 Major depressive disorder, recurrent, unspecified; G40.909 Epilepsy, unspecified, not intractable, without status epilepticus; K21.9 Gastro-esophageal reflux disease without esophagitis; E78.5 Hyperlipidemia, unspecified; K76.0 Fatty (change of) liver, not elsewhere classified; R19.7 Diarrhea, unspecified
CPT/HCPCS: 36415; 74176; 74177; 80048; 80053; 83036; 83735; 84443; 85025; 87081; C9113; J7030; Q9967

== ENCOUNTER 2019-05-01 20:14 | Emergency (ER) | payer OTHER ==
[~2019-05-01] VITALS: Ht 170.2 cm; Wt 86.4 kg
[~2019-05-01 20:14] MED LIST changes: +ACET-141 PO; +FAMO-96 PO; +MELO15TA30 PO; +ONDA4TAB8 PO
[2019-05-01 20:21] VITALS: Ht 170.2 cm; Wt 86.4 kg
[2019-05-01] MEDS ORDERED: LIDOCAINE/MYLANTA 40 ML BTL PO STA (22:07)
[2019-05-01] MEDS ORDERED: FAMOTIDINE 20 MG TAB PO STA (22:07)
[2019-05-01] MEDS ORDERED: ONDANSETRON (ODT) 4 MG TAB ODT STA (22:07)
[2019-05-01] MEDS ORDERED: BELLADONNA/PHENOBARBITAL TAB PO STA (22:07)
--- NOTE | 2019-05-01 23:27 | ERD ---
ER Documentation Chief Complaint Chief Complaint abdominal pain x 2 days HPI This is a 73-year-old female with a past medical history of hypertension, hyperlipidemia, diabetes, ovarian cancer status post radiation and hysterectomy, volvulus status post repair, depression, anxiety, chronic abdominal pain who is presenting with an exacerbated episode of epigastric pain and nausea without vomiting. The patient's symptoms have been waxing and waning in nature. She describes her abdominal pain as cramping and burning in nature. They have been getting worse over the last 2 to 3 days, which is ultimately what prompted her to come to the emergency department. The patient has had normal bowel movements every day. She denies any constipation or diarrhea. She has not had any black or bloody or tarry stools. She denies any dysuria or hematuria or urgency or frequency. The patient denies feeling sick recently. The patient denies fever or chills. The patient has had no headache or vision changes. The patient does not endorse neck or back pain. The patient denies lightheadedness or dizziness. The patient has had no chest pain or trouble breathing. The patient has had no focal deficits. The patient has had no weakness or numbness or tingling to the face or extremities. ROS All systems reviewed and are negative except as per history of present illness. Medications Home Meds Reported Medications Acetaminophen* (Acetaminophen*) 500 MG Extra Strength Tablet, 500 MG PO Q4H PRN for PAIN AND OR ELEVATED TEMP, TAB 01/17/19 Meloxicam* (Mobic*) 15 Mg Tablet, 15 MG PO DAILY for 90 Days, #90 01/17/19 Metformin Hcl* (Metformin Hcl*) 500 Mg Tablet, 500 MG PO WITH BREAKFAST, #30 TAB 06/07/18 Calcium Citrate/Vitamin D (Citracal-Vitamin D 200 MG-250) 1 Each Tablet, 1 EACH PO BID, TAB 06/06/18 Glucosa Dey 2KCL/Chondroitin Dey (GLUCOSAMINE CHONDROITIN CAPLET) 1 Each Tablet, 1 EACH PO, TAB 06/06/18 Vitamin B Complex (Vitamin B Complex) 1 Each Capsule, 1 EACH PO, CAP 06/06/18 Multivitamins* (Theragran*) 1 Tab Tab, 1 TAB PO DAILY, TAB 06/06/18 Esomeprazole Magnesium (Esomeprazole Magnesium) 40 Mg Capsule.dr, 40 MG PO DAILY, #60 11/07/15 Sertraline Hcl* (Sertraline Hcl*) 25 Mg Tablet, 25 MG PO QHS, #90 11/07/15 Gemfibrozil* (Gemfibrozil*) 600 Mg Tablet, 600 MG PO BID, #180 11/07/15 Gabapentin* (Gabapentin*) 300 Mg Capsule, 300 MG PO BID, #180 TAKE 600MG BY MOUTH IN THE MORNING, 900mg IN THE EVENING 11/07/15 Allergies Allergies: Coded Allergies: atorvastatin (Verified Allergy, Unknown, GENERALISED EDEMATOUS, 01/16/19) PMhx/Soc History of Surgery: Yes (hysterectomy, herniated disc repair 1981, cholecystectomy) Anesthesia Reaction: No Hx Neurological Disorder: No Hx Respiratory Disorders: No Hx Cardiac Disorders: Yes (HTN) Hx Psychiatric Problems: Yes (Depression,anxiety) Hx Miscellaneous Medical Probl: Yes (ovarian cancer w/ radiation therapy,intestinal volvulus w/ repair) Hx Alcohol Use: No Hx Substance Use: No Hx Tobacco Use: No Smoking Status: Never smoker FmHx Family History: diabetes Physical Exam Vitals Vital Signs Date Temp Pulse Resp B/P (MAP) Pulse Ox O2 O2 Flow FiO2 Time Delivery Rate 05/01/19 71 23 134/74 96 Room Air 22:30 (94) 05/01/19 82 28 166/82 98 Room Air 22:06 (110) 05/01/19 98.8 87 18 137/66 98 20:21 (89) Physical Exam Const: No apparent distress, well-developed, well-nourished Head: Normocephalic, Atraumatic Eyes: Normal Conjunctiva. Extraocular movements intact. Pupils equal, round and reactive to light ENT: Normal External Ears, Nose and Mouth. Neck: Full range of motion. No meningismus. Resp: Clear to auscultation bilaterally, No wheezes, rales or rhonchi Cardio: Regular rate and rhythm. No murmurs, rubs or gallops Abd: Soft, non distended. Mild epigastric tenderness. No guarding or r ebound. Normal bowel sounds Skin: No petechiae or rashes Back: No midline tenderness. No CVA tenderness Ext: No cyanosis, or edema Neur: Awake and alert, oriented 4. Cranial nerves intact. No facial droop. Normal strength, sensation and coordination. Psych: Normal Mood and Affect Results 24 hrs Current Medications Medications Dose Sig/Adam Start Time Status Last (Trade) Ordered Route PRN Stop Time Admin Dose Reason Admin Famotidine 20 mg ONCE STAT 05/01/19 DC 05/01/19 (Pepcid) PO 22:07 22:24 05/01/19 22:08 40 ml ONCE STAT 05/01/19 DC 05/01/19 Miscellaneous PO 22:07 22:23 Medication 05/01/19 22:08 (Gi Cocktail (2)) Belladonna/ 2 tab ONCE STAT 05/01/19 DC 05/01/19 Phenobarbital PO 22:07 22:24 () 05/01/19 22:08 Ondansetron 8 mg ONCE STAT 05/01/19 DC 05/01/19 HCl (Zofran ODT 22:07 22:23 Odt) 05/01/19 22:08 Procedures/MDM MDM Previous medical records, if available, were reviewed. The patient presents with epigastric abdominal pain with nausea. I was concerned about the possibility of gastritis versus GERD versus PUD. The patient reports that these are chronic symptoms. I have decreased suspicion for an emergent pathology. She may follow-up with her primary care physician. The patient does not have any evidence of peritonitis. The patient does not have clinical symptoms concerning for mesenteric ischemia or ischemic colitis. There is no evidence of viscus perforation. I have low suspicion for gastritis, PUD or GERD. The patient does not have left upper quadrant tenderness. I have low suspicion for pancreatitis. The patient does not have any right lower quadrant tenderness, or periumbilical tenderness. I have low suspicion for appendicitis. The patient does not have suprapubic tenderness. I have decreased suspicion for cystitis. The patient does not have any left lower quadrant tenderness, and I have low suspicion for diverticulosis or diverticulitis. The patient does not h ave any flank tenderness. The patient does not have gross hematuria. I have decreased suspicion for nephrolithiasis or renal colic. The patient does not have any palpable pulsatile mass or severe abdominal pain radiating to the back. I have low suspicion for aortic aneurysm, dissection or rupture. The patient reports having normal bowel movements. I have decreased suspicion for a small bowel obstruction. The patient does have a reported history of a volvulus, but her symptoms are not consistent with this today. TREATMENT/DISPOSITION The patient was treated with Pepcid, Zofran and a GI cocktail with resolution of her pain. DISCHARGE Upon reevaluation of the patient, symptoms have improved. No emergent diagnoses were identified. At this time, I feel that the patient stable for discharge. The patient was instructed to follow-up with a primary care physician in 1-3 days. The patient will be given strict precautions with which to return to the emergency department. Prescriptions: Pepcid, Zofran The patient's blood pressure was elevated at greater than 120/80 while in the emergency department. The patient was otherwise stable with no evidence of hypertensive urgency or emergency. The patient does not require admission for blood pressure control. I have discussed with the patient the risks of hypertension. I have instructed the patient to return to the ER for any new or worsening symptoms including chest pain, shortness of breath, headache, blurred vision, confusion, nausea, vomiting or LOC. I have advised the patient to follow up with the primary care physician for outpatient monitoring and treatment for hypertension in 1-3 days. DISCLAIMER Inadvertent spelling and grammatical errors are likely due to EHR/dictation software use and do not reflect on the overall quality of patient care. Note that the electronic time recorded on this note does not necessarily reflect the actual time of the patient encounter. Departure Diagnosis: Primary Impression: Chronic abdominal pain Additional Impressions: Epigastric pain Nausea Condition: Stable Patient Instructions: Epigastric Pain (Uncertain Cause), Nausea Additional Instructions: Thank you for for coming to [facility] for your care today. Please ask your nurse or provider if you have questions about your care today and do not leave until all your questions have been answered. Please use any m edications given as directed and follow-up with your doctor (or the doctor you were referred to) in the next 1-3 days. If you do not have a primary care doctor you may follow up at the [facility] [place] or [facility] (listed below). You may also use motrin and tylenol as needed for fever and/or pain unless instructed otherwise by your provider or nurse. Indications for more urgent follow-up have been discussed, but you may return to the Emergency Department at ANY time for any worrisome or worsening symptoms. If you have abdominal pain, please know that no test or exam you received is perfect and you should follow up within 8 hours for continued pain. If you had any imaging studies today, such as an X-Ray or CT Scan, these studies will be reviewed later by a radiologist. You will be called if there are important findings that were not identified today, so make sure the contact information you provided at registration is correct. If you received any narcotic pain control medicine today, such as Vicodin, Morphine or Dilaudid, your coordination and judgment may be affected for a number of hours. Please do not drive or operate heavy machinery, and you may want someone to assist you at home. If you were given a prescription for narcotic medication, be aware that it is very addictive- use sparingly and only if necessary. PLEASE SEEK FURTHER EVALUATION AND MANAGEMENT AT YOUR DOCTORS OFFICE WITHIN THE NEXT 1-3 DAYS. IT IS YOUR RESPONSIBILITY TO MAKE AN APPOINTMENT FOR FOLOW-UP CARE. IF YOU HAVE A PRIMARY DOCTOR, PLEASE CALL THEIR OFFICE TO SCHEDULE AN APPOINTMENT FOR FOLLOW UP. IF YOU DO NOT HAVE A PRIMARY DOCTOR YOU CAN CALL OUR PHYSICIAN REFERRAL HOTLINE AT IF YOU CAN NOT AFFORD TO SEE A PHYSICIAN YOU CAN CHOSE FROM THE FOLLOWING CRITICAL ACCESS [facility] CLINICS: [facility] [address] [facility] [address] [facility] [address] [facility] [facility] [address] [facility]. [facility] [address] [facility] [facility] [facility]. [address] JAYCE SCOTT MD May 01, 2019 23:27
[2019-05-01 23:30] VITALS: BP 131/71; PULSE 69; RESP 23
== END 2019-05-01 23:40 | disposition home or self-care (01) ==
LOC: E/R 20:14
DX: R10.13 Epigastric pain (principal); R11.0 Nausea; I10 Essential (primary) hypertension; E11.9 Type 2 diabetes mellitus without complications; Z85.43 Personal history of malignant neoplasm of ovary; Z79.84 Long term (current) use of oral hypoglycemic drugs
CPT/HCPCS: 99283